=== PATIENT | female | born 1950 | race Caucasian/White ===

== ENCOUNTER → 2017-08-09 | Outpatient (CLI) | payer MEDICARE, OTHER ==
[~2017-08-09] MED LIST: HERBALS; NO MEDS
--- NOTE | 2017-08-09 10:14 | RADIOLOGY IMAGING REPORT ---
[place]AC[place] [facility] [place] NAME: Damari Haider : 1950 MR: [id number] V: [id number] EXAM DATE: ORDERING PHYSICIAN: TYLER ARRIETA TECHNOLOGIST: Location: [facility] [place] Patient: Damari Haider : 1950 Visit/Account:[id number] Date of Sevice: 08/09/2017 DEXA Scan Clinical history: Postmenopausal screening. Comparison: DEXA scan from 04/22/2005. LUMBAR SPINE: The bone mineral density (BMD) measured from L1-L4 correlates with a Z-score of -1.9 and a T-score of -3.4 which is osteoporosis as defined by the World Health Organization. The corresponding risk of f racture in the lumbar spine is 8-12 times increased compared with a young adult reference population. This value has decrease by 6.7 % since the prior study. More than 5% change is considered signific ant. HIP: Bone mineral density (BMD) measured in the LEFT total hip region correlates with a Z-score -1.3 and a T-score of -2.4 which is osteopenia as defined by the World Health Organization. The corresponding risk of fracture in the hip is 4-6 times increased compared to a young adult reference population. Th is value has change by zero % since the prior study. More than 5% change is considered significant. T score left femoral neck -2.6 Bone mineral density (BMD) measured in the Femoral Neck region measures 0.674 g/cm?. IMPRESSION: 1. Lumbar spine: Osteoporosis. There has been 6.7% decrease in the bone mineral density since the p revious exam. 2. Left Total Hip: Osteopenia. There has been No significant change in the bone mineral density sin ce the previous exam. 3. Femoral Neck: Bone Mineral Density is 0.674 g/cm? The next DEXA scan of this patient should include the following sites: L1-L4 and the left hip. FRAX? WHO Fracture Risk Assessment Tool link: <http://www.shef.ac.uk/FRAX/tool.jsp?locationValue=9> PLEASE NOTE: 1) The World Health Organization defines low BMD as follows: T-score Normal > -1 Osteopenia < -1 and > -2.5 Osteoporosis < -2.5 without fractures Established osteoporosis < -2.5 with fractures 2) In general, you may wish to consider: Diagnosis Treatment Follow-up DEXA Normal BMD Prevention 2-3 years Osteopenia Prevention/therapy 1-2 years Osteoporosis Therapy Yearly 3) Fracture risk estimated from the T-score is more accurate for vertebral fractures (often spontane ous) than for hip fractures. Report Dictated By: Barbie De La Garza MD at 08/09/2017 10:08 AM Report E-Signed By: Barbie De La Garza MD at 08/09/2017 10:10 AM WSN:[email or web address]
== END ==
LOC: RAD 07-31 01:05
PROVIDERS: ATTEND Physician Assistant
DX: Z13.820 Encounter for screening for osteoporosis (principal); M81.0 Age-related osteoporosis without current pathological fracture; M85.88 Other specified disorders of bone density and structure, other site
CPT/HCPCS: 77080

== ENCOUNTER 2018-01-01 15:50 | Emergency (ER) | payer MEDICARE, OTHER ==
--- NOTE | 2018-01-01 16:18 | ER Report ---
History and Physical Time Seen By MD: 15:50 Hx. of Stated Complaint: SEIZURE AT CLINIC WHILE GETTING ORDER FOR RIGHT ANKLE, LEFT WRIST INJURY. NO HISTORY SEIZURE HPI/ROS CHIEF COMPLAINT: seizure HISTORY OF PRESENT ILLNESS: Pt fell off a stool this am around 1030 per her friends. Pt hurt her left wrist and ankle when falling off a stool earlier today. Pt was going to see Delfino Tabor to obtain an xray and while awaiting an xray pt seized in the waiting room. Pt had tonic clonic seizure witnessed for less then a minute. Pt postictal for 20 minutes and started to be arrousable on ems arrival. Pt on ed arrival is confused and not sure why she is here. Pt has bitten her tongue during episode. REVIEW OF SYSTEMS: Constitutional: No fever, no chills. Eyes: No discharge. ENT: No sore throat. Cardiovascular: No chest pain, no palpitations. Respiratory: No cough, no shortness of breath. Gastrointestinal: No abdominal pain, no vomiting. Genitourinary: No hematuria. Musculoskeletal: No back pain, + left wrist and ankle pain Skin: No rashes. Neurological: No seizure Allergies: Coded Allergies: No Known Drug Allergies (Verified , 07/21/08) Home Meds Reported Medications [Herbals] No Conflict Check, 0 Refills 07/21/08 [No Meds] No Conflict Check, 0 Refills 07/21/08 Unable To Obtain Past Medical: Unable to Obtain/Update Constitutional Vital Sign - Last 24 Hours 01/01/18 15:55 Temp 98.3 Pulse 93 Resp 18 B/P (MAP) 131/82 Pulse Ox 91 O2 Delivery Room Air Physical Exam General Appearance: The patient is alert, has no immediate need for airway protection and no signs of toxicity. Eyes: Pupils equal and round no pallor or injection, EOMI ENT: no pharyngeal erythema or exudates, Mucous membranes are moist, TM are nl b/l, neg hemotympanums, + tongue laceration, 0.5mm,and bruising to left side of tongue Respiratory: There are no retractions, lungs are clear to auscultation. Cardiovascular: Regular rate and rhythm. pulses are equal and symmetrical Gastrointestinal: Abdomen is soft and non tender, no masses, bowel sounds normal, no guarding, no rigidity or rebound Neurological: Cranial nerves II-XII grossly intact, no sensory or motor loss Skin: Warm and dry, no rashes. Musculoskeletal: Neck is supple non tender, no vertebral tenderness Extremities are non swollen and have full range of motion, has some mild tenderness lateral ankle DIFFERENTIAL DIAGNOSIS: After history and physical exam differential diagnosis was considered for left ankle sprain, left ankle fx; wrist contusion, seizure, intracranial bleed Medical Decision Making Data Points Result Diagram: 01/01/18 1627 01/01/18 1627 Laboratory Hematology Test 01/01/18 16:27 Red Blood Count 4.63 M/uL (4.17-5.56) Mean Corpuscular Volume 85.4 fL (80.0-96.0) Mean Corpuscular Hemoglobin 29.4 pg (26.0-33.0) Mean Corpuscular Hemoglobin Concent 34.5 g/dL (32.0-36.0) Red Cell Distribution Width 15.4 % (11.5-14.5) Mean Platelet Volume 8.3 fL (7.2-11.1) Neutrophils % (Manual) 70 % (39.4-72.5) Lymphocytes % (Manual) 21 % (17.6-49.6) Monocytes % (Manual) 6 % (4.1-12.4) Eosinophils % (Manual) 1 % (0.4-6.7) Basophils % (Manual) 2 % (0.3-1.4) Sodium Level 132 mmol/L (137-145) Potassium Level 3.7 mmol/L (3.5-5.0) Chloride Level 97 mmol/L (98-107) Carbon Dioxide Level 25 mmol/L (22-31) Blood Urea Nitrogen 14 mg/dl (7-18) Creatinine 0.70 mg/dl (0.52-1.04) Glomerular Filtration Rate Calc > 60.0 Random Glucose 160 mg/dl (75-110) Calcium Level 9.0 mg/dl (8.4-10.2) Total Bilirubin 1.0 mg/dl (0.2-1.3) Aspartate Amino Transf (AST/SGOT) 57 U/L (0-35) Alanine Aminotransferase (ALT/SGPT) 72 U/L (0-56) Alkaline Phosphatase 122 U/L (0-126) Troponin I < 0.012 ng/ml Total Protein 7.3 g/dl (6.3-8.2) Albumin 4.1 g/dl (3.5-5.0) Lipase 174 U/L (23-300) Helicobacter pylori IgG Antibody Negative (NEGATIVE) Chemistry Test 01/01/18 16:27 White Blood Count 7.3 k/uL (4.5-11.0) Red Blood Count 4.63 M/uL (4.17-5.56) Hemoglobin 13.6 g/dL (12.0-16.0) Hematocrit 39.5 % (34.0-47.0) Mean Corpuscular Volume 85.4 fL (80.0-96.0) Mean Corpuscular Hemoglobin 29.4 pg (26.0-33.0) Mean Corpuscular Hemoglobin Concent 34.5 g/dL (32.0-36.0) Red Cell Distribution Width 15.4 % (11.5-14.5) Platelet Count 212 K/uL (150-450) Mean Platelet Volume 8.3 fL (7.2-11.1) Neutrophils % (Manual) 70 % (39.4-72.5) Lymphocytes % (Manual) 21 % (17.6-49.6) Monocytes % (Manual) 6 % (4.1-12.4) Eosinophils % (Manual) 1 % (0.4-6.7) Basophils % (Manual) 2 % (0.3-1.4) Glomerular Filtration Rate Calc > 60.0 Calcium Level 9.0 mg/dl (8.4-10.2) Total Bilirubin 1.0 mg/dl (0.2-1.3) Aspartate Amino Transf (AST/SGOT) 57 U/L (0-35) Alanine Aminotransferase (ALT/SGPT) 72 U/L (0-56) Alkaline Phosphatase 122 U/L (0-126) Troponin I < 0.012 ng/ml Total Protein 7.3 g/dl (6.3-8.2) Albumin 4.1 g/dl (3.5-5.0) Lipase 174 U/L (23-300) Helicobacter pylori IgG Antibody Negative (NEGATIVE) EKG/Imaging EKG Interpretation nsr @ 80 with no acute changes Imaging no acute pathology. ED Course/Re-evaluation Clinical Indication for ER IV: IV Access ED Course 01/01/2018 4:32:09 pm Pt states that she has had seizures in the past, 1973 and 1981. 01/01/2018 5:06:43 pm spoke with patient and she denies any headache. Does not recall the seizure. Pt does recall tripping this morning and does not feel like she hit here head. Pt has remote hx of seizures but was never placed on medication. Second seizure was believed to be due to eclampsia since it was during her sons . PT states she takes no medication. Pt does states she has some nausea and epigastriac discomfort now that is "mild". Let her know that her wrist and ankle did not show any fractires. Pt states that it was her r ankle that twisted not her left ankle; although it is her left that is swollen lateral maleolus. Offered to xray the right but pt declined. 01/01/2018 6:07:35 pm PT asking to go home. States he is tired but feels well. Pt has not had a seizure work up in many years. Recommend we do an MRI today in the emergency department. Pt declined the MRI but states she will follow up with neurologist in [place]. Pt is going home with a friend so she will no tbe alone. Decision to Disposition Date: Jan 01, 2018 Decision to Disposition Time: 18:10 Depart Departure Latest Vital Signs Vital Signs Date Time Temp Pulse Resp B/P (MAP) Pulse Ox O2 Delivery O2 Flow Rate FiO2 01/01/18 15:55 98.3 93 18 131/82 91 Room Air Impression: Primary Impression: Seizure Condition: Improved Disposition: HOME OR SELF-CARE Referrals: JEANNIE MONTANO MD 5 Days Patient Instructions: Recurrent Seizures in Adults (ED) Additional Instructions: Follow up with your family doctor and neurology. It is important that you follow up with neurology. I have provided you with a neurologist from [place]. If symptoms reoccur please return immediately. ORTIZ ELDRIDGE V DO Jan 01, 2018 16:17
[2018-01-01 16:31] LABS: PLATELET COUNT, AUTOMATED 212 K/uL (150-450)
--- NOTE | 2018-01-01 16:34 | RADIOLOGY IMAGING REPORT ---
FACILITY: [facility] [place] PATIENT NAME: Damari Haider : 1950 MR: [id number] V: [id number] EXAM DATE: ORDERING PHYSICIAN: ORTIZ ELDRIDGE TECHNOLOGIST: Location: [facility] Patient: Damari Haider : 1950 Visit/Account:[id number] Date of Sevice: 01/01/2018 Technique: ANKLE 3 VIEW MIN LEFT HISTORY: fall, wrist pain Comparison studies: None FINDINGS: There is no acute fracture. The ankle mortise is maintained. Benign-appearing dystrophic calcifications are seen near the cuboid. No ankle joint effusion. IMPRESSION: 1. No acute osseous process. Report Dictated By: Brandon Tran DO at 01/01/2018 4:26 PM Report E-Signed By: Brandon Tran DO at 01/01/2018 4:30 PM WSN:[email or web address]
--- NOTE | 2018-01-01 16:39 | RADIOLOGY IMAGING REPORT ---
[place] [facility] [place] Damari Haider : 1950 MR: [id number] V: [id number] EXAM DATE: ORDERING PHYSICIAN: ORTIZ ELDRIDGE TECHNOLOGIST: Location: [facility] Patient: Damari Haider : 1950 Visit/Account:[id number] Date of Sevice: 01/01/2018 Technique: WRIST LEFT MIN 3 VIEW HISTORY: fall, wrist pain Comparison studies: None FINDINGS: There is no acute fracture. Advanced degenerative and erosive changes are noted at the rad iocarpal and intercarpal joints characterized by joint space loss, sclerosis and subchondral cystic c hanges. There are also advanced degenerative changes at the first and third MCP joints. The alignme nt of the left wrist is maintained. No significant soft tissue swelling. IMPRESSION: 1. No acute osseous process. 2. Advanced degenerative and erosive changes as described above. Report Dictated By: Brandon Tran DO at 01/01/2018 4:31 PM Report E-Signed By: Brandon Tran DO at 01/01/2018 4:35 PM WSN:[email or web address]
[2018-01-01] MEDS ORDERED: ONDANSETRON 4 MG/2 ML VIAL IVP ONE (17:10)
--- NOTE | 2018-01-01 17:12 | RADIOLOGY IMAGING REPORT ---
FACILITY: [facility] PATIENT NAME: Damari Haider : 1950 MR: [id number] V: [id number] EXAM DATE: ORDERING PHYSICIAN: ORTIZ ELDRIDGE TECHNOLOGIST: Location: [facility] [place] Patient: Damari Haider : 1950 Visit/Account:[id number] Date of Sevice: 01/01/2018 EXAMINATION: CT head without IV contrast HISTORY: Seizure after fall. TECHNIQUE: Axial CT images of the head were obtained from the vertex to the skull base without IV c ontrast, with coronal and sagittal 2D reconstructed images. One of the following dose optimization techniques was utilized in the performance of this exam: Autom ated exposure control; adjustment of the mA and/or kV according to the patient's size; or use of an i terative reconstruction technique. Specific details can be referenced in the facility's radiology C T exam operational policy. COMPARISON: None. FINDINGS: Mild generalized parenchymal atrophy, with mild patchy low attenuation in the deep white matter margarito tible with chronic small vessel ischemic change. Intracranial vascular calcifications. Benign basal g anglia calcifications bilaterally. No CT evidence of intracranial hemorrhage, mass lesion, or acute infarct. No midline shift or extra-a xial fluid collections. Oleary-white differentiation is maintained. The calvarium is intact. The partially visualized paranasal sinuses and mastoid air cells are unopaci fied. IMPRESSION: 1. No CT evidence of acute intracranial pathology. 2. Mild parenchymal atrophy and chronic small vessel ischemic change. Report Dictated By: Reed Holbrook MD at 01/01/2018 5:05 PM Report E-Signed By: Reed Holbrook MD at 01/01/2018 5:08 PM WSN:[email or web address]
--- NOTE | 2018-01-01 17:17 | RADIOLOGY IMAGING REPORT ---
FACILITY: [facility] PATIENT NAME: Damari Haider : 1950 MR: [id number] V: [id number] EXAM DATE: ORDERING PHYSICIAN: ORTIZ ELDRIDGE TECHNOLOGIST: Location: [facility] [place] Patient: Damari Haider : 1950 Visit/Account:[id number] Date of Sevice: 01/01/2018 EXAMINATION: CT cervical spine without IV contrast HISTORY: Seizure after fall. TECHNIQUE: Thin axial CT images of the cervical spine were obtained without IV contrast, with sagit sindy and coronal 2D reconstructed images. One of the following dose optimization techniques was utilized in the performance of this exam: Autom ated exposure control; adjustment of the mA and/or kV according to the patient's size; or use of an i terative reconstruction technique. Specific details can be referenced in the facility's radiology C T exam operational policy. COMPARISON: None. FINDINGS: The cervical spine is negative for acute fracture or subluxation. Normal alignment. Vertebral body he ight is maintained. Chronic degenerative changes in the cervical spine. There is mild disc space narrowing at the C4-C5 t hrough C6-C7 interspaces with mild endplate osteophyte formation. Posterior elements are intact, with normal alignment along the cervical facet joints. The dens is intact. Advanced degenerative changes at the atlantodental articulation with subchondral cystic change. The C1 ring is intact, with normal alignment at the craniocervical junction. IMPRESSION: 1. No acute osseous findings in the cervical spine. 2. Chronic multilevel degenerative changes as described. Report Dictated By: Reed Holbrook MD at 01/01/2018 5:10 PM Report E-Signed By: Reed Holbrook MD at 01/01/2018 5:12 PM WSN:[email or web address]
--- NOTE | 2018-01-01 17:51 | EKG ---
FACILITY: [facility] - [place] PATIENT NAME: SURAJ ADORNO : [id number] MR: [id number] V: [id number] EXAM DATE: ORDERING PHYSICIAN: ORTIZ ELDRIDGE TECHNOLOGIST: MICHELE Test Reason : ER Blood Pressure : / mmHG Vent. Rate : 081 BPM Atrial Rate : 081 BPM P-R Int : 156 ms QRS Dur : 082 ms QT Int : 392 ms P-R-T Axes : 066 054 036 degrees QTc Int : 455 ms Normal sinus rhythm Normal ECG No previous ECGs available Confirmed by DANA ORTIZ ([id number]) on 01/02/2018 6:28:43 AM Referred By: TUCKER Confirmed By:DANA ORTIZ
[2018-01-01 18:15] VITALS: BP 117/84
== END 2018-01-01 18:30 | disposition home or self-care (01) ==
LOC: ER 16:00
DX: R56.9 Unspecified convulsions (principal)
CPT/HCPCS: 70450; 72125; 73110; 73610; 83690; 84484; 85007; 85027; 86677; 93005; 96374; 99284; J2405; 82040; 82247; 82310; 82374; 82435; 82565; 82947; 84075; 84132; 84155; 84295; 84450; 84460; 84520

== ENCOUNTER → 2018-01-01 | Outpatient (CLI) | payer MEDICARE, OTHER | LOC: AMB 15:32 | PROVIDERS: ATTEND Nurse Practitioner | DX: R56.9 Unspecified convulsions (principal); R41.82 Altered mental status, unspecified | CPT/HCPCS: A0425; A0427 ==

== ENCOUNTER → 2018-01-10 | Outpatient (CLI) | payer MEDICARE, OTHER ==
--- NOTE | 2018-01-10 14:04 | RADIOLOGY IMAGING REPORT ---
FACILITY: [facility] PATIENT NAME: Damari Haider : 1950 MR: [id number] V: [id number] EXAM DATE: ORDERING PHYSICIAN: DAMIR YUSUF TECHNOLOGIST: [place] [facility] [place]: Damari Haider : 1950 Visit/Account:[id number] Date of Sevice: 01/10/2018 Exam type: ANKLE 3 VIEW MIN RIGHT History: Fall and pain Comparison: None. Findings: There is osteopenia present. There is no evidence of acute fracture or dislocation involving the rig ht ankle. Ankle mortise appears intact. There are moderate degenerative changes seen at the talonav icular joint. IMPRESSION: 1. Osteopenia No evidence of acute fracture dislocation Moderate degenerative changes of the right talonavicular joint Report Dictated By: Barbie De La Garza MD at 01/10/2018 11:56 AM Report E-Signed By: Barbie De La Garza MD at 01/10/2018 2:00 PM WSN:[email or web address]
== END ==
LOC: RAD 10:37
PROVIDERS: ATTEND Emergency Medicine
DX: M85.871 Other specified disorders of bone density and structure, right ankle and foot (principal)